=== PATIENT | female | born 1980 | race Hispanic/Latino ===

== ENCOUNTER 2019-10-14 18:33 | Observation (INO) | payer BC ==
[2019-10-14] MEDS ORDERED: hydrALAZINE 20 MG/ML VIAL SLOW IVP PRN (19:10)
[2019-10-14] MEDS ORDERED: Lactated Ringer's 1,000 ML IV SCH (19:15)
[2019-10-14 19:30] VITALS: BMI 59.5
[2019-10-14 19:54] LABS: #Eosinphils 0.2 thou/uL (0.0-0.7); #Lymphocytes 1.7 thou/uL (1.20-3.40); #Monocytes 0.7 thou/uL (0.11-0.59); #Neutrophils 11.1 thou/uL (1.40-6.50); %Basophils 0.1 % (0.0-1.0); %Eosinophils 1.1 % (0.0-10.0); %Lymphocytes 12.3 % (21.0-51.0); %Monocytes 4.9 % (0.0-10.0); %Neutrophils 81.5 % (42.0-75.0); Hemoglobin 10.1 g/dL (12.0-16.0); Mean Corpuscular HGB CONC 33.9 g/dL (32.0-36.0); Mean Corpuscular Hemoglobin 28.8 pg (27.0-31.0); Mean Platelet Volume 6.7 fL (7.4-10.4); Platelet Count 329 thou/uL (130-400); RBC Distribution Width 16.2 % (11.5-14.5); Red Blood Cell (RBC) Count 3.52 mill/uL (4.20-5.40); White Blood Cell (WBC) Count 13.6 thou/uL (4.8-10.8)
[2019-10-14] MEDS ORDERED: Promethazine HCl 25 MG/ML VIAL IM PRN (22:54)
[2019-10-14] MEDS ORDERED: Zolpidem Tartrate 5 MG TAB PO PRN (22:54)
[2019-10-14] MEDS ORDERED: Ondansetron PF 4 MG/2 ML Vial IVP PRN (22:54)
[2019-10-14] MEDS ORDERED: Acetaminophen 500 MG TAB PO PRN (22:54)
--- NOTE | 2019-10-14 22:58 | PDOC.LDHP ---
Labor and Delivery H&P Chief complaint: other (bleeding) HPI: 39 yo WF presents c/o bright red bleeding starting earlier tonight. Denies pain or LOF. Transferred to Dr. Woods from [facility] earlier this year. Current gestational age (weeks): 22 Due date: 02/11/20 Dating criteria: first trimester ultrasound Grav: 2 Para: 0 OB History Details: h/o loss at 13 weeks, no D&C, trated medically Current complications: other (h/o 1st trimester bleeding) Abnormal US findings: Yes (low lying placenta) Past Medical History: PCOS, obesity Current medications: pre-kamron vitamins Previous surgical history: none Allergies/Adverse Reactions: Allergies Allergy/AdvReac Type Severity Reaction Status Date / Time No Known Allergies Allergy Verified 10/14/19 19:24 Social history: none - Physical Exam General: NAD Heart: RRR Lungs: CTAB Abdomen: gravid Extremeties: trace edema - OB Labs RH: positive - Assessment 22 04/25 weelk IUP 2nd trimester bleeding, pelvic exam deferred USG tonight shows low lying placenta. - Plan Plan: observation in L&D, other (observe for further bleeding)
--- NOTE | 2019-10-14 23:13 | ULT ---
LIMITED OB ULTRASOUND: 10/14/19 HISTORY: Vaginal bleeding. FINDINGS: Exam is limited due to patient's body habitus. A single live intrauterine gestation is seen with candido urements corresponding to an estimated gestational age of 22 weeks, 5 days and ABRAHAM at 02/12/2020. The estimated weight measures 522 grams or 1 lb. 2 oz. measurements are as follows: BDP 5.51 cm 22 weeks, 6 days HC 31.04 cm 23 weeks, 1 day AC 17.90 cm 22 weeks, 5 days FL 3.85 cm 22 weeks, 2 days heart rate measures 149 beats per minute. JEREMY measures 8.5 cm. Cervical length measures 3.5 cm. Placenta is anteriorly located without evidence of placenta previa. The placenta is low lying and an terior without placenta previa. IMPRESSION: 1. Single live IUP of 22 weeks, 5 days estimated gestational age with ABRAHAM at 02/12/2020. 2. Low lying anterior placenta without evidence of placenta previa. POS: OFF
[2019-10-15] MEDS: Lactated Ringer's 1,000 ML IV SCH ×4 (00:36→09:03)
[2019-10-15 08:24] VITALS: BP 107/61; TEMP 98.6
--- NOTE | 2019-10-15 16:09 | DIS ---
DATE OF ADMISSION: 10/14/2019 DATE OF DISCHARGE: 10/15/2019 Ms. Degroot is a 39-year-old Latin-Portuguese female, G2, P0, A1, who is at 22 weeks and 6 days gestation based on EDC, confirmatory ultrasound in the first trimester of 02/11/2020. She presented to Labor and Delivery Unit last evening with a complaint of painless vaginal bleeding. She was assessed by Dr. Robertson, the OB hospitalist and ultrasound was obtained. An ultrasound showed anterior low-lying placenta with no evidence of placenta previa. Fetus was active, consistent with date, 22 weeks and 5 days. EFW 1 pound 2 ounces with normal fluid and heart rate activity in the 150s. She was observed in the Labor and Delivery Unit for any further bleeding, which has thankfully resolved. Her blood type is O positive. This morning, the patient reports active fetus. No uterine contractions or loss of fluid or active vaginal bleeding. She is tolerating her diet and generally feels well. Her vital signs are stable. Abdomen is soft, nontender, and obese. On perineal evaluation, there is no active bleeding noted. ASSESSMENT: This is a 39-year-old Latin-Portuguese female, G2, P0, A1, with low-lying placenta anterior with recent bleed. Presently, bleeding has resolved. Normal interval growth on ultrasound evaluation with viable fetus. PLAN: To discharge home with modified bed rest at home for the next few days. If she has any return of bleeding, she is instructed to return to the hospital. She is also instructed to have pelvic rest. She has a followup on 10/29 with [facility]aternal Medicine and 10/30 with ca. Job ID: [id number]
== END 2019-10-15 10:10 | disposition home health service, planned readmission (86) ==
LOC: L&D/OP 18:33 → L&D 23:11 → 3SW 23:39
PROVIDERS: ADMIT Obstetrics & Gynecology; ATTEND Obstetrics & Gynecology
DX: O44.52 Low lying placenta with hemorrhage, second trimester (principal); O99.282 Endocrine, nutritional and metabolic diseases complicating pregnancy, second trimester; E28.2 Polycystic ovarian syndrome; Z3A.22 22 weeks gestation of pregnancy
CPT/HCPCS: 36415; 36416; 76815; 85025; 86850; 86900; 86901; 96360; 96361; 99285; G0378

== ENCOUNTER 2020-02-04 05:30 | Inpatient (IN) | payer BC ==
[2020-02-04 07:19] VITALS: BMI 60.4
[2020-02-04] MEDS: Lactated Ringer's 1,000 ML IV SCH ×3 (07:25→16:31)
[2020-02-04] MEDS ORDERED: NS / Oxytocin 40 units/1000ml 1,000 ML IV PRN (07:28)
[2020-02-04] MEDS ORDERED: Penicillin G Potassium 5 MILL.UNITS in Sodium Chloride 0.9% 100 ML IVPB SCH (07:28)
[2020-02-04] MEDS ORDERED: Butorphanol Tartrate 1 MG/ML VIAL SLOW IVP PRN (07:28)
[2020-02-04] MEDS ORDERED: Lidocaine 1% (PF) 30 ML VIAL SC PRN (07:28)
[2020-02-04] MEDS ORDERED: Acetaminophen 500 MG TAB PO PRN (07:28)
[2020-02-04] MEDS ORDERED: Ibuprofen 800 MG TAB PO PRN (07:28)
[2020-02-04] MEDS ORDERED: Acetaminophen/Codeine 30-300mg Tablet PO PRN (07:28)
[2020-02-04] MEDS ORDERED: Ondansetron PF 4 MG/2 ML Vial IVP PRN ×2 (07:28→16:02)
[2020-02-04] MEDS ORDERED: Promethazine HCl 25 MG/ML VIAL IM PRN ×2 (07:28→16:02)
[2020-02-04 07:49] LABS: Mean Corpuscular HGB CONC 33.5 g/dL (32.0-36.0); Mean Corpuscular Hemoglobin 27.6 pg (27.0-31.0); Mean Corpuscular Volume 82.5 fL (78.0-98.0); Mean Platelet Volume 7.2 fL (7.4-10.4); Platelet Count 346 thou/uL (130-400); RBC Distribution Width 17.8 % (11.5-14.5); Red Blood Cell (RBC) Count 3.99 mill/uL (4.20-5.40); White Blood Cell (WBC) Count 10.6 thou/uL (4.8-10.8)
[2020-02-04 08:17] LABS: Syphilis Antibody Nonreactive (Nonreactive); Syphilis Antibody Index 0.05 S/CO (<1.00 Non-Reactive)
[2020-02-04 08:18] LABS: HBSAg Index 0.16 S/CO (0-0.99); Hep B Surf Ag Non-Reactive S/CO (NonReactive)
[2020-02-04] MEDS ORDERED: Labetalol HCl 100 MG/20 ML VIAL ONE (08:25)
[2020-02-04] MEDS: NS w/ Oxytocin 10 units 500 ML IV SCH (08:49)
[2020-02-04 09:44] LABS: ALT (SGPT) 10 U/L (8-55); AST (SGOT) 16 U/L (5-34); Albumin 3.4 g/dL (3.5-5.0); Alkaline Phosphatase 193 U/L (40-110); Anion Gap 18 mmol/L (10-20); BUN (Urea Nitrogen) 15 mg/dL (7.0-18.7); Bilirubin, Total 0.5 mg/dL (0.2-1.2); Calc. Creatinine Clearance 237 mL/min (70-130); Calcium 9.1 mg/dL (7.8-10.44); Carbon Dioxide 16 mmol/L (22-29); Chloride 106 mmol/L (98-107); Estimated GFR-MDRD 89; Globulin 3.3 g/dL (2.4-3.5); Glucose 101 mg/dL (70-105); Potassium 4.2 mmol/L (3.5-5.1); Protein, Total 6.7 g/dL (6.0-8.3); Sodium 136 mmol/L (136-145)
[2020-02-04] MEDS ORDERED: Bupivacaine PF 0.5% 30 ML VIAL ONE (11:21)
[2020-02-04] MEDS ORDERED: Bupivacaine/Epinephrine 0.25% 30 ML VIAL ONE (11:21)
[2020-02-04] MEDS ORDERED: EPHEDRINE 25 MG/5 ML SYRINGE ONE (11:21)
[2020-02-04] MEDS: Penicillin G 2.5 MILL.units 2.5 MILL.UNITS in Premix Bag 1 BAG IVPB SCH ×4 (12:29→23:56)
[2020-02-04] MEDS: hydrALAZINE 20 MG/ML VIAL SLOW IVP PRN ×3 (14:29→23:48)
[2020-02-04] MEDS ORDERED: Fentanyl 4 mcg/Bup 0.1% Cadd 100 ML ONE ×2 (14:32→22:49)
[2020-02-04] MEDS ORDERED: hydrALAZINE 20 MG/ML VIAL ONE (15:07)
[2020-02-04] MEDS ORDERED: Fentanyl 100 MCG/2 ML VIAL ONE (15:31)
[2020-02-04] MEDS ORDERED: Bupivacaine 0.5% 10 ML VIAL ONE (15:32)
[2020-02-04] MEDS ORDERED: Terbutaline Sulfate 1 MG/ML VIAL ONE (15:54)
[2020-02-04] MEDS ORDERED: Naloxone HCl 0.4 mg/ml Vial IVP PRN ×2 (16:02)
[2020-02-04] MEDS ORDERED: EPHEDRINE 25 MG/5 ML SYRINGE SLOW IVP PRN (16:02)
[2020-02-04] MEDS ORDERED: diphenhydrAMINE 50 MG/ML VIAL IVP PRN (16:02)
[2020-02-04] MEDS ORDERED: Acetaminophen 325 MG TAB PO PRN (16:02)
[2020-02-04] MEDS ORDERED: Lactated Ringer's 500 ML IV PRN (16:02)
[2020-02-04] MEDS ORDERED: Fentanyl 4 mcg/Bupivacaine 0.1% Cassette 100 ML EPIDURAL SCH (16:15)
[2020-02-04] MEDS ORDERED: Communication Order-Pharmacy FS SCH (16:15)
[2020-02-04] MEDS ORDERED: Labetalol HCl 100 MG/20 ML VIAL SLOW IVP SCH (17:30)
[2020-02-05] MEDS ORDERED: Labetalol HCl 100 MG/20 ML VIAL SLOW IVP PRN ×2 (01:00→01:15)
[2020-02-05] MEDS ORDERED: Labetalol HCl 100 MG/20 ML VIAL SLOW IVP SCH (01:00)
[2020-02-05] MEDS: Lactated Ringer's 1,000 ML IV SCH ×3 (01:22→13:48)
[2020-02-05] MEDS ORDERED: Fentanyl 100 MCG/2 ML VIAL ONE ×2 (03:44→08:26)
[2020-02-05] MEDS ORDERED: CEFAZOLIN IVPB SCH (03:45)
--- NOTE | 2020-02-05 03:50 | PDOC.LDHP ---
Labor and Delivery H&P Chief complaint: scheduled induction HPI: 39 y/o LAF at 39 weeks. Long h/o PCOS/Insulin resistance/morbid obesity/ sleep apnea...Labor induction for AMA/GDM. Current gestational age (weeks): 39 Dating criteria: first trimester ultrasound Grav: 2 Para: 0 Current complications: pregestational diabetes, hypertension Abnormal US findings: No Past Medical History: as above Current medications: pre-kamron vitamins, other (metformin 500 mg bid) Allergies/Adverse Reactions: Allergies Allergy/AdvReac Type Severity Reaction Status Date / Time No Known Allergies Allergy Verified 10/14/19 19:24 - Vaginal Exam cm dilated: 3 Effacement: 50% Station: -2 - OB Labs Blood type: O RH: positive Antibody Screen: negative HIV: negative RPR: negative HEPSAg: negative GBS: positive Urine drug screen: negative - Assessment L&D Assessment: medically indicated induction
[2020-02-05] MEDS ORDERED: Ketorolac Tromethamine 30 MG/ML VIAL ONE (03:57)
[2020-02-05] MEDS ORDERED: Dexamethasone 4 mg/ml Vial ONE (03:57)
[2020-02-05] MEDS ORDERED: PHENYLEPHRINE-NS 100 MCG/ML 10 ML SYRINGE ONE (03:57)
[2020-02-05] MEDS ORDERED: Ondansetron PF 4 MG/2 ML Vial ONE (03:57)
[2020-02-05] MEDS ORDERED: Oxytocin 10 UNITS/ML VIAL ONE (03:57)
[2020-02-05] MEDS ORDERED: MORPHINE 5 MG/10 ML PF VIAL ONE (03:57)
[2020-02-05] MEDS ORDERED: EPHEDRINE 25 MG/5 ML SYRINGE ONE (03:57)
[2020-02-05] MEDS ORDERED: CEFAZOLIN 2 GM in Premix Bag 1 BAG IVPB SCH (04:00)
[2020-02-05] MEDS ORDERED: Azithromycin 500 MG in Sodium Chloride 0.9% 250 ML 250 ML IVPB SCH (04:00)
[2020-02-05] MEDS ORDERED: Bicitra 30 ML UDCUP PO SCH (04:00)
--- NOTE | 2020-02-05 04:03 | PDOC.EVN ---
Event Note - Event Note Event Note: Patient has been complete for over 3 hours and 9 cm since 2200 with failure to descend past +1 station. The head appears to be rop and very asynclitic. heart rate tracing remains Category 1... A/P: Failure to descend in second stage. GDM and morbid obesity. BMI 61....Anesthesia and nursery aware..
[2020-02-05] MEDS ORDERED: hydrALAZINE 20 MG/ML VIAL SLOW IVP PRN ×2 (04:04→08:48)
[2020-02-05] MEDS ORDERED: Simethicone Chewable 80 MG TAB PO PRN ×2 (04:04→16:22)
[2020-02-05] MEDS ORDERED: HYDROcodone/Acetaminophen 5/325 mg Tablet PO PRN ×3 (04:04→08:48)
[2020-02-05] MEDS ORDERED: CEFAZOLIN 3 GM, Admixture Fee 1 EACH in Sodium Chloride 0.9% 100 ML IVPB SCH (04:30)
[2020-02-05] MEDS ORDERED: Ondansetron PF 4 MG/2 ML Vial IVP PRN ×2 (04:43→12:40)
[2020-02-05] MEDS ORDERED: Naloxone HCl 0.4 mg/ml Vial IVP PRN ×3 (04:43→12:40)
[2020-02-05] MEDS ORDERED: Ketorolac Tromethamine 30 MG/ML VIAL IVP PRN (04:43)
[2020-02-05] MEDS ORDERED: Naloxone HCl 0.4 mg/ml Vial IV PRN ×3 (04:43→12:40)
[2020-02-05] MEDS ORDERED: Promethazine HCl 25 MG SUPP PR PRN ×2 (04:43→12:40)
[2020-02-05] MEDS ORDERED: diphenhydrAMINE 50 MG/ML VIAL IVP PRN ×2 (04:43→12:40)
[2020-02-05] MEDS ORDERED: Ondansetron HCl/PF 4 MG/2 ML Vial IVP PRN (04:43)
[2020-02-05] MEDS ORDERED: Promethazine HCl 25 MG/ML VIAL IM PRN ×2 (04:43→12:40)
[2020-02-05] MEDS ORDERED: Communication Order-Pharmacy FS SCH (04:45)
[2020-02-05] MEDS ORDERED: Acetaminophen 650 MG Suppository PR SCH (06:00)
[2020-02-05] MEDS ORDERED: Ibuprofen 800 MG TAB PO SCH ×2 (06:00→14:00)
--- NOTE | 2020-02-05 06:48 | OP ---
DATE OF PROCEDURE: 02/05/2020 PRIMARY OB: Angelica Woods MD The patient is a 39-year-old female, who experienced arrest of labor and underwent a primary with Dr. Angelica Woods, as primary surgeon. I functioned as the machinist first class to her. For complete details, please refer to her operative note. Job ID: [id number]
[2020-02-05] MEDS ORDERED: Fentanyl 100 MCG/2 ML VIAL SLOW IVP PRN (08:16)
[2020-02-05] MEDS: NS w/ Oxytocin 10 units 500 ML IV SCH (08:34)
[2020-02-05] MEDS: Penicillin G 2.5 MILL.units 2.5 MILL.UNITS in Premix Bag 1 BAG IVPB SCH (08:36)
[2020-02-05] MEDS ORDERED: diphenhydrAMINE 25 MG CAP PO PRN (08:48)
[2020-02-05] MEDS ORDERED: Acetaminophen 325 MG TAB PO PRN (08:48)
[2020-02-05] MEDS ORDERED: NO PO,IM,IV OR SC NARCOTICS FOR 12HR EXCEPT BY ANESTHESIA PO SCH (12:40)
[2020-02-05] MEDS ORDERED: Hydrocerin (Eucerin) Cream 120 gm Jar TOP PRN (12:40)
[2020-02-05] MEDS ORDERED: Sodium Chloride 0.9% 10 ML ONE (13:46)
[2020-02-05] MEDS: Ketorolac Tromethamine 30 MG/ML VIAL IVP PRN ×2 (13:47→21:30)
--- NOTE | 2020-02-05 14:30 | OP ---
DATE OF PROCEDURE: 02/05/2020 PREOPERATIVE DIAGNOSES: 1. A 39-year-old Latin-Indonesian female, G2, P0, A1, at 39 weeks. 2. Gestational diabetes, polycystic ovarian syndrome. 3. Advanced maternal age. 4. Obstructive sleep apnea. 5. Status post induction of labor with failure to descend in second stage. 6. Persistent right occiput posterior presentation. 7. Morbid obesity with a BMI of 61. POSTOPERATIVE DIAGNOSES: 1. A 39-year-old Latin-Indonesian female, G2, P0, A1, at 39 weeks. 2. Gestational diabetes, polycystic ovarian syndrome. 3. Advanced maternal age. 4. Obstructive sleep apnea. 5. Status post induction of labor with failure to descend in second stage. 6. Persistent right occiput posterior presentation. 7. Morbid obesity with a BMI of 61. PROCEDURE PERFORMED: Primary low-transverse section without extension. SCREEN MAKER SURGEON: Qasim Nash MD ANESTHESIA: Epidural. QUANTITATIVE BLOOD LOSS: 1465 mL. FINDINGS: 1. Female infant, ROP presentation noted. Clear amniotic fluid noted. Apgars 5 and 8 with weight of 8 pounds 0 ounces. 2. Urine was noted to be bloody prior to surgery in labor, with a decreasing amount of blood-tinged urine noted at the end of this procedure. DISPOSITION: To recovery room stable. DESCRIPTION OF PROCEDURE: The patient had been in labor, after induction had progressed to complete station, complete dilation, and had pushing for over 3 hours with no descent from 0 to +1 station. She is noted to have persistent ROP presentation. Numerous modalities of therapy with positions and an attempt at manual rotation were performed. To no avail, the fetus persisted in ROP presentation with no descent and primary section was carried out. The patient was taken back to the operating room. Epidural was dosed for surgical procedure. Her large pannus was taped with silk tape on each side on the right and left inferior border of the large pannus. This was pulled up over shoulders. Then, we were able to prep the area of surgical operative site. The incision was marked by palpation of the symphysis in the iliac crest bilaterally midway between this point after the patient had been prepped and then she was draped. A Pfannenstiel-type incision was made over this area. It was carried down to the fascia after thick adipose tissue was cut through and hemostasis of the bleeding vessels were obtained with Bovie cautery. The fascia was reached. It was nicked in midline, extended bilaterally using curved Finney scissors. The rectus fascia was then dissected superiorly and inferiorly off the rectus muscle bellies. Peritoneal cavity was entered. An extra large Gil retractor was then placed. My 3rd resident assistant cna was a family practice resident holding the pannus with a large [place] retractor. We then did hysterotomy incision after vesicouterine peritoneal incision, bladder flap was created. This was taken down and the hysterotomy incision was made. This extended via finger fractionation. The baby was delivered in the ROP presentation. Mouth and nares of the were bulb suctioned on the abdomen. The cord was doubly clamped and cut, handed to the pediatric team in attendance. Usual cord blood was obtained and the placenta was manually extracted. The uterus was curetted of any remaining placental fragments with dry laparotomy sponge. Hysterotomy incision was then carried out and was closed with #1 Monocryl in a running locking fashion with good hemostasis noted. There was an area of some tension in the right broad ligament slightly approximately 3 cm on the right side and this had been obtained with hemostasis with [id number] stitches of 2-0 chromic. Once hemostasis of the hysterotomy incision was confirmed, the uterus was irrigated and suctioned again and hemostasis was confirmed. The Gil O retractor was removed. Again, hemostasis along the hysterotomy site was confirmed. The rectus muscle bellies were inspected prior to fascial closure. The fascia was closed with 0 PDS suture x2 in running continuous fashion. The subcutaneous tissues were irrigated and noted to be hemostatic prior to approximation. A running 2-0 plain gut suture was placed in Eliud's fascia to rid some of the space prior to closure of the skin with george. The surgery was then terminated. No anesthetic or surgical complications occurred. Job ID: [id number]
[2020-02-05] MEDS: Prenatal Vitamin 1 TAB PO SCH (15:57)
[2020-02-05] MEDS ORDERED: Adacel (T-DAP) 0.5 ML SYRINGE IM ONE (21:00)
[2020-02-06] MEDS: Ketorolac Tromethamine 30 MG/ML VIAL IVP PRN (04:32)
[2020-02-06 05:54] LABS: Hemoglobin 8.6 g/dL (12.0-16.0); Mean Corpuscular HGB CONC 33.4 g/dL (32.0-36.0); Mean Corpuscular Hemoglobin 28.2 pg (27.0-31.0); Mean Corpuscular Volume 84.5 fL (78.0-98.0); Mean Platelet Volume 6.9 fL (7.4-10.4); Platelet Count 248 thou/uL (130-400); RBC Distribution Width 17.7 % (11.5-14.5); Red Blood Cell (RBC) Count 3.05 mill/uL (4.20-5.40); White Blood Cell (WBC) Count 12.1 thou/uL (4.8-10.8)
[2020-02-06 06:18] LABS: Anion Gap 11 mmol/L (10-20); BUN (Urea Nitrogen) 19 mg/dL (7.0-18.7); Calc. Creatinine Clearance 219 mL/min (70-130); Calcium 8.3 mg/dL (7.8-10.44); Carbon Dioxide 22 mmol/L (22-29); Chloride 103 mmol/L (98-107); Estimated GFR-MDRD 81; Glucose 83 mg/dL (70-105); Sodium 132 mmol/L (136-145)
--- NOTE | 2020-02-06 07:58 | PDOC.PP ---
Post Progress Note Post Day #: 1 PO intake tolerated: yes Flatus: yes Ambulation: yes Vital Signs (12 hours) Temp Pulse Resp BP Pulse Ox 02/06/20 06:11 98.6 F 89 16 138/64 95 02/06/20 00:14 90 02/05/20 20:20 98.4 F 90 16 110/57 L 96 Weight Weight 320 lb Result Diagrams: 02/06/20 05:36 02/06/20 05:36 Additional Labs: Post Labs Blood Type O POSITIVE 02/04/20 07:31 Hep Bs Antigen Non-Reactive S/CO (NonReactive) 02/04/20 07:30 - Assessment/Plan Post op day 1 from primary c/s -failure to descend. Urine output improved. Creatinine is normal.. HCT 25.7. No tachycardia/normal BP. routine post op care...Restart [id number] mg bid.
[2020-02-06] MEDS: Prenatal Vitamin 1 TAB PO SCH (08:31)
[2020-02-06] MEDS: HYDROcodone/Acetaminophen 5/325 mg Tablet PO PRN ×3 (08:31→22:43)
[2020-02-06] MEDS: Ibuprofen 800 MG TAB PO SCH ×2 (17:45→22:42)
[2020-02-07] MEDS: HYDROcodone/Acetaminophen 5/325 mg Tablet PO PRN ×3 (05:10→17:51)
--- NOTE | 2020-02-07 05:51 | PDOC.PP ---
Post Progress Note Post Day #: 2 Subjective: 39 yo G2 now P1 with history of GDM, morbid obesity, and sleep apnea post op day 2 s/p pLTCS 2/2 failure to descend. Pt reports pain controlled, tolerating po, scant lochia, ambulating, passing flatus. No headache, cp, sob, NVDC, epigastric/ruq pain. Elevated BP overnight at 153->141/81. All others normal. PO intake tolerated: yes Flatus: yes Ambulation: yes Vital Signs (12 hours) Temp Pulse Resp BP Pulse Ox 02/06/20 20:12 98.2 F 85 16 141/64 H 96 Weight Weight 145.15 kg - Physical Examination General: NAD Cardiovascular: no m/r/g, RRR Respiratory: clear to auscultation bilaterally Abdominal: + bowel sounds, lochia, no distention, appropriately TTP Extremities: negative homans (B) Skin: CS incision dry & intact, no rash Neurological: no gross focal deficits Psychiatric: normal affect Result Diagrams: 02/06/20 05:36 02/06/20 05:36 Additional Labs: Post Labs Blood Type O POSITIVE 02/04/20 07:31 Hep Bs Antigen Non-Reactive S/CO (NonReactive) 02/04/20 07:30 (1) delivery delivered Code(s): O82 - ENCOUNTER FOR DELIVERY WITHOUT INDICATION Status: Acute (2) Diabetes mellitus affecting in third trimester Code(s): O24.913 - UNSPECIFIED DIABETES MELLITUS IN , THIRD TRIMESTER Status: Acute (3) Failure to progress in labor Code(s): O62.2 - OTHER UTERINE INERTIA Status: Acute - Assessment/Plan 1) s/p pLTCS - all pp milestones met - pt reports she is doing well - possible dc to home later today - baby possibly continuing lights, if so monitor overnight given status and elevated BP Dispo: stable, cont to monitor bps this am and consider dc to home pending above.
[2020-02-07 08:35] VITALS: TEMP 98.5
[2020-02-07] MEDS: Prenatal Vitamin 1 TAB PO SCH (09:29)
[2020-02-07] MEDS: Ibuprofen 800 MG TAB PO SCH ×2 (09:30→16:37)
[2020-02-07 12:03] VITALS: BP 140/60
== END 2020-02-07 18:16 | disposition home or self-care (01) | DRG 788 ==
LOC: L&D 06:36 → 3SW 02-05 10:39
PROVIDERS: ADMIT Obstetrics & Gynecology; ATTEND Obstetrics & Gynecology
PROC: 10907ZC Drainage of Amniotic Fluid, Therapeutic from Products of Conception, Via Natural or Artificial Opening (ICD-10-PCS; 2020-02-04)
PROC: 3E033VJ Introduction of Other Hormone into Peripheral Vein, Percutaneous Approach (ICD-10-PCS; 2020-02-04)
PROC: 10D00Z1 Extraction of Products of Conception, Low, Open Approach (ICD-10-PCS; principal; 2020-02-05)
DX: O24.425 Gestational diabetes mellitus in childbirth, controlled by oral hypoglycemic drugs (principal); Z3A.39 39 weeks gestation of pregnancy; Z37.0 Single live birth; E66.01 Morbid (severe) obesity due to excess calories; O99.284 Endocrine, nutritional and metabolic diseases complicating childbirth; E28.2 Polycystic ovarian syndrome; O99.214 Obesity complicating childbirth; G47.33 Obstructive sleep apnea (adult) (pediatric); O99.353 Diseases of the nervous system complicating pregnancy, third trimester; O16.4 Unspecified maternal hypertension, complicating childbirth; O64.0XX0 Obstructed labor due to incomplete rotation of fetal head, not applicable or unspecified; Z79.899 Other long term (current) drug therapy; Z79.82 Long term (current) use of aspirin
CPT/HCPCS: 36415; 36416; 80048; 80053; 84156; 85027; 86780; 86850; 86900; 86901; 87340; J0360; J0690; J1100; J1885; J2274; J2405; J2540; J2590; J3010; J3105; J3490; S0020